=== PATIENT | male | born 1940 | race Caucasian/White ===

== ENCOUNTER 2017-03-14 14:44 | Inpatient (IN) | payer MEDICARE ==
[2017-03-14 15:04] LABS: Hematocrit 42.2 % (42.0-52.0); Red Blood Cell (RBC) Count 3.91 mill/uL (4.70-6.10); White Blood Cell (WBC) Count 9.9 thou/uL (4.8-10.8)
[2017-03-14 15:19] LABS: Lactic Acid - Sepsis 4.2 mmol/L (0.5-2.2)
[2017-03-14 15:20] LABS: Bilirubin Negative (Negative); Blood, Urine Moderate (Negative); Glucose, Urine (Dipstick) Negative (Negative); Ketone, Urine Negative (Negative); Nitrite Negative (Negative); Protein, Urine (Dipstick) Negative (Neg-Trace); Urobilinogen 0.2 mg/dL (0.2-1.0)
[2017-03-14 15:25] LABS: Troponin I 0.057 ng/mL (< 0.028)
[2017-03-14 15:27] LABS: Bacteria/HPF None Seen HPF (None Seen); Hyaline Casts/LPF 0-3 HYALINE CAST LPF (0-3 Hyaline); Squamous Epithelial None Seen HPF (0-3); WBC/HPF None Seen HPF (0-3)
[2017-03-14 15:30] LABS: #Lymphocytes 0.6 thou/uL (1.20-3.40); #Monocytes 0.9 thou/uL (0.11-0.59); #Neutrophils 8.4 thou/uL (1.40-6.50); %Eosinophils 0.3 % (0.0-10.0); %Lymphocytes 6.2 % (21.0-51.0); %Monocytes 8.9 % (0.0-10.0); Anisocytosis SLIGHT = 6-15 cells (100X) (0-5/hpf); Hypochromia SLIGHT = 6-15 cells (100X) (0-5/hpf); Macrocytosis SLIGHT = 6-15 cells (100X) (0-5/hpf)
[2017-03-14 15:35] LABS: ALT (SGPT) 17 U/L (8-55); AST (SGOT) 38 U/L (5-34); Alkaline Phosphatase 142 U/L (40-150); Anion Gap 19 mmol/L (10-20); BUN (Urea Nitrogen) 17 mg/dL (8.4-25.7); Bilirubin, Total 0.8 mg/dL (0.2-1.2); CK (CPK) 52 U/L (30-200); Calc. Creatinine Clearance 0 mL/min (70-130); Calcium 9.6 mg/dL (7.8-10.44); Carbon Dioxide 32 mmol/L (23-31); Chloride 91 mmol/L (98-107); Estimated GFR-MDRD 74; Globulin 3.8 g/dL (2.4-3.5); Protein, Total 7.6 g/dL (5.8-8.1)
--- NOTE | 2017-03-14 17:16 | RAD ---
PORTABLE AP CHEST X-RAY 03/14/17 HISTORY: Dyspnea. COMPARISON: Not available. FINDINGS: A right internal jugular vein Mediport catheter is noted in place with tip overlying the right atrium . The cardiac silhouette is within normal limits. There is increased perihilar interstitial opacities seen throughout the left lung with slight blunting of the left lateral costophrenic angle which may relate to left pleural effusion. There are also pleural and parenchymal changes of the right lung bas e which may relate to right pleural effusion and atelectasis. There are minimal interstitial densitie s at the right lung base. Vascular calcifications seen in the thoracic aorta. There is osteopenia. IMPRESSION: 1. Increased left perihilar interstitial opacities with mild prominence of the left hilar struct ures. The findings may be related to asymmetric pulmonary edema or infectious process. Lymphangitic s pread of tumor cannot be entirely excluded. 2. Small bilateral pleural effusions, larger on the right with atelectasis at the right lung bas e. POS: [facility]
[2017-03-14] MEDS ORDERED: Morphine 4 MG/ML VIAL SLOW IVP PRN (17:30)
[2017-03-14 18:11] VITALS: BP 97/48; TEMP 97.6; BMI 19.3
--- NOTE | 2017-03-14 19:47 | HP ---
DATE OF ADMISSION: 03/14/2017 CHIEF COMPLAINT: Shortness of breath, weakness. HISTORY OF PRESENT ILLNESS: The patient is a 77-year-old male with past medical history significant for lung cancer and end-stage COPD, who on home oxygen, who was brought by the family after he was fo und to be short of breath and clammy and weak. The family stated that they brought him to this [facility] because they heard that we have very good hospice service program. This patient is established w jaclyn Cope and [facility]. He had several operations done in [place]. PAST MEDICAL HISTORY: Positive for: 1. COPD. 2. Lung cancer. 3. Melanoma. PAST SURGICAL HISTORY: 1. Hernia repair. 2. Aortic aneurysm, nonoperable. SOCIAL HISTORY: He used to smoke since he was 12. He smokes 1-2 packs of cigarettes per day. Alcoh ol, he is an ex-alcoholic. He used to drink a lot, but he quit many years ago. ALLERGIES: ATIVAN. MEDICATIONS: We do not have the list of medications he was taking at home so far. REVIEW OF SYSTEMS: Unobtainable. The patient is not able to give me any history and the family is n ot able to give me anything. PHYSICAL EXAMINATION: VITAL SIGNS: His blood pressure is 120/80, respiratory rate is around 24, temperature is 96 rectally . HEENT: His pupils are in the midline, approximately 2-3 mm, responding to light properly. GENERAL: He is awakeable, but he is somewhat comatose. He has a BiPAP mask placed by emergency room physicia n because original message was to keep him alive until his can come and see him before we can le t him go. LUNGS: Emphysematous, breath sounds diminished at both bases, few rales bilaterally. HEART: S1, S2 normal, distant. No S3, no S4. ABDOMEN: Soft but somewhat tender. He grimaces while palpating his abdomen. Bowel sounds are prese nt. EXTREMITIES: No clubbing, cyanosis, or edema. NEUROLOGIC: Not performed since he is not able to follow my commands. LABORATORY AND X-RAY FINDINGS: White count of 9.9, hemoglobin 13.1, hematocrit 42.2, platelet count is 171,000. Sodium of 136, potassium 6.4, chloride of 91, CO2 of 32, BUN 17, creatinine 0.98, glucos e 181, lactic acid 4.2, calcium 9.6, AST 38, globulin 3.8. CK-MB 2.4. Troponin 0.057. BNP 99.8. C hest x-ray, this is personally reviewed by me, showed increased interstitial markings bilaterally mos tly on the left side and the right lower lobe area looks like there is most like mass, opacification of the right lower lobe is almost complete. His heart has normal size. IMPRESSION: 1. Respiratory failure, most likely secondary to his end-stage chronic obstructive pulmonary disease exacerbation and underlying lung cancer which was inoperable because of his advanced chronic obstruc tive pulmonary disease. 2. Lung cancer, status post chemo and radiation, inoperable. 3. End-stage chronic obstructive pulmonary disease. 4. Hyperkalemia. 5. Macrocytic anemia. 6. Elevated lactic acid, most likely secondary to his hypoxia. PLAN: To keep him comfortable. He is on BiPAP now. We are waiting for his to come and see him and according to the family, the patient's son and daughter and will discontinue his BiPAP and switc h him to nasal cannula and hospice services. We requested and we are waiting for the consultation. At this point, we are going to use morphine 4 mg every 4 minutes p.r.n. for comfort measures. We katelyn l continue his oxygen and we will transfer him most likely to hospice care.
--- NOTE | 2017-03-14 20:44 | PDOC.EVN ---
Event Note - Event Note Event Note: Covering for Dr. Sam, signed OOH DNR at his request.
== END 2017-03-14 21:10 | disposition hospice, inpatient (51) | DRG 189 ==
LOC: ERS 14:44 → ONC 17:06
PROVIDERS: ADMIT Internal Medicine; ATTEND Internal Medicine
PROC: 5A09357 Assistance with Respiratory Ventilation, Less than 24 Consecutive Hours, Continuous Positive Airway Pressure (ICD-10-PCS; principal; 2017-03-14)
DX: J96.91 Respiratory failure, unspecified with hypoxia (principal); E87.2 Acidosis; Z99.81 Dependence on supplemental oxygen; C34.90 Malignant neoplasm of unspecified part of unspecified bronchus or lung; J44.1 Chronic obstructive pulmonary disease with (acute) exacerbation; E87.5 Hyperkalemia; D53.9 Nutritional anemia, unspecified; Z85.820 Personal history of malignant melanoma of skin; Z88.8 Allergy status to other drugs, medicaments and biological substances; Z92.21 Personal history of antineoplastic chemotherapy; Z92.3 Personal history of irradiation; Z87.891 Personal history of nicotine dependence; Z66 Do not resuscitate
CPT/HCPCS: 36415; 51702; 71010; 80053; 81003; 81015; 82550; 82553; 83605; 83880; 84484; 85025; 87040; 93005; 94760; 96360; J2270